=== PATIENT | female | born 1980 | race Caucasian/White ===

== ENCOUNTER → 2016-07-05 | Day surgery (SDC) | payer OTHER ==
[~2016-07-05] MED LIST: BACITRACIN OINT 1 EACH PACKET TOPICAL ONE; LIDOCAINE 1% INJ 10MG/ML (20 ML MDV) ONE; SODIUM BICARB 4% 5 ML VIAL (0.48 MEQ/ML) ONE
--- NOTE | 2016-07-05 09:29 | MM ---
EXAMINATION TYPE: MG stereo VAD BX LT DATE OF EXAM: 07/05/2016 9:11 AM COMPARISON: Previous mammogram dated 06/22/2016. CLINICAL HISTORY: Abnormal mammogram and ultrasound. TECHNIQUE: Stereotactic guided core biopsy of left breast. FINDINGS: The procedure of stereotactic guided core biopsy was explained to the patient. Benefits, alternatives, and risks were discussed. An informed consent was then obtained. [facility] Shortness pathway was a lateral approach. I performed the localization, then surgeon, Dr. Ness performed the remainder of the procedure. A vacuum assisted biopsy gun was used to obtain multiple core samples. The patient tolerated the procedure well without any immediate complication. The patient was kept in the radiology department for short stay after the procedure and then discharged home in stable condition. Targeted calcifications are identified in specimen mammogram. Post biopsy mammogram shows the clip to appear in satisfactory position relative to the targeted area of concern on the preprocedure images. IMPRESSION: SUCCESSFUL, UNCOMPLICATED STEREOTACTIC GUIDED CORE BIOPSY OF AREA OF CONCERN IN THE LEFT BREAST, FULL PATHOLOGY RESULTS TO FOLLOW. Pathology Results: Benign BREAST, LEFT, ULTRASOUND GUIDED CORE BIOPSY: FRAGMENTS OF FIBROADENOMA. FIBROCYSTIC CHANGE (STROMAL FIBROSIS, CYST FORMATION, ADENOSIS, COLUMNAR CELL CHANGE AND DUCT HYPERPLASIA). Recommendation Follow up mammogram and ultrasound of the left breast in 6 months. MTDD
--- NOTE | 2016-07-05 17:30 | PCN ---
DATE OF PROCEDURE: Patient was taken to the stereotactic core room and the area of concern in the left breast was localized. The skin was prepped in a sterile fashion. 1% lidocaine was used to anesthetize the area of concern. Multiple core biopsies were obtained and the specimen appeared to have tissue consistent with the lesion. The specimen was not radiographed as there were not microcalcifications. The marking clip was then left behind. The patient tolerated the procedure in stable condition and specimen was sent for pathology.
== END ==
LOC: RADMAMWWP 07:08
PROVIDERS: ATTEND Surgery
DX: D24.2 Benign neoplasm of left breast (principal); N60.12 Diffuse cystic mastopathy of left breast; N60.22 Fibroadenosis of left breast; N60.92 Unspecified benign mammary dysplasia of left breast; R92.8 Other abnormal and inconclusive findings on diagnostic imaging of breast
CPT/HCPCS: 88305; 19081; A4648; J2001

== ENCOUNTER → 2018-11-20 | Outpatient (CLI) | payer OTHER ==
[2018-11-20 14:40] VITALS: BP 115/81; PULSE 83; RESP 16; TEMP 97.8; BMI 33.3
--- NOTE | 2018-11-20 16:05 | P.GSHP ---
History of Present Illness H&P Date: 11/20/18 Chief Complaint: Mass right breast In the end is a 38-year-old white female who states that she felt a mass in her right breast [place] [id number]. She was seen by her primary care doctor and underwent a mammogram and ultrasound. She was noted to have an area of nodularity at 1:00 in the left breast which previously been biopsied this was felt to be slightly decreased in size when compared to prior exams. She developed an interval suspicious nodule in the 12 o'clock position of the right breast. Radiographically she was noted to have a mass in the right breast which is 14 x 19 mm on ultrasound. She does not feel any other masses or lesions in her breasts. She denies any history of trauma or infection in the breast. She was recently discharged from the hospital after a suicidal attempt. She is bipolar. She states that the lesion in her right breast is painful to touch. Family history: Maternal cousin: Colon cancer Father: Lung cancer Maternal uncle: Brain cancer Hormonal history: Menarche: 11 3 miscarriages Periods: Regular Procedure post colon 20 years Hormones: Negative Past surgical history: 1. Bilateral ankle surgery 2. Tubal ligation 3. Tonsils and adenoids 4. Mucosal lesion removed from her mouth Past medical history: 1. Bipolar 2. Depression and anxiety 3. Mood disorder 4. Insomnia Social history: Smoking: One pack per day for 20 years Alcohol: Occasional Drugs: Marijuana - Constitutional Constitutional: Denies chills, Denies fever - EENT Eyes: denies blurred vision, denies pain Ears: deny: decreased hearing, tinnitus Ears, nose, mouth and throat: Denies headache, Denies sore throat - Breasts Breasts: bilateral: as per HPI - Cardiovascular Cardiovascular: Denies chest pain, Denies shortness of breath - Respiratory Respiratory: Denies cough, Denies 7 - Gastrointestinal Gastrointestinal: Denies abdominal pain, Denies diarrhea, Denies nausea, Denies vomiting - Genitourinary (Female) Genitourinary: Denies dysuria, Denies hematuria - Menstruation Menstruation: Reports period normal - Musculoskeletal Comment: arthritis - Integumentary Integumentary: Denies pruritus, Denies rash - Neurological Comment: Carpal tunnel, weakness and hands at times - Psychiatric Psychiatric: Reports as per HPI - Hematologic/Lymphatic Comment: none - Allergic/Immunologic Allergic/Immunologic: Reports seasonal allergies Past Medical History Past Medical History: Skin Disorder History of Any Multi-Drug Resistant Organisms: None Reported Smoking Status: Current every day smoker Past Drug Use History: Marijuana Medications and Allergies Home Medications Medication Instructions Recorded Confirmed Type DULoxetine HCL [Cymbalta] 30 mg PO DAILY 11/20/18 11/20/18 History LORazepam [Ativan] 1 mg PO TID 11/20/18 11/20/18 History risperiDONE 2 mg PO HS 11/20/18 11/20/18 History traZODone HCL 100 mg PO HS 11/20/18 11/20/18 History Allergies Allergy/AdvReac Type Severity Reaction Status Date / Time No Known Allergies Allergy Unverified 11/20/18 14:40 Surgical - Exam Vital Signs Temp Pulse Resp BP Pulse Ox 97.8 F 83 16 115/81 95 11/20/18 14:36 11/20/18 14:36 11/20/18 14:36 11/20/18 14:36 11/20/18 14:36 BMI 33.3 - General well developed, well nourished, no distress - Eyes normal ocular movement - ENT no hearing loss, no congestion - Neck no masses, trachea midline - Respiratory normal respiratory effort, clear to auscultation - Cardiovascular Rhythm: regular Heart Sounds: normal: S1, S2 - Abdomen Abdomen: soft, non tender, no guarding, no rigid, no rebound - Integumentary Normal turgor - Neurologic no disoriented, no combative - Musculoskeletal normal gait, normal posture - Psychiatric oriented to time, oriented to person, oriented to place, speech is normal, memory intact Breast examination: Right breast: Multi-positional exam increased nodularity in the 12 o'clock position, 5 mL changes Right axilla: No adenopathy of concern Left breast: No dominant masses or nodules of concern on multi-positional exam, fibrocystic changes Left axilla: No adenopathy of concern Results Mammogram and ultrasound report reviewed Assessment and Plan Assessment: Impression: 1. Radiographic abnormality right breast 2. Mass right breast 3. Family history cancer 4. Psychiatric disorders including bipolar, depression/anxiety, mood disorder, insomnia 5. Carpal tunnel 6. Nicotine dependence 7. Marijuana daily Plan: 1. Ultrasound-guided core biopsy right breast 2. Follow-up after ultrasound-guided core biopsy 3. Consider excision of palpable mass depending on results of ultrasound core biopsy Cc: Bonnie Whitten
== END ==
LOC: WWCWWP 14:01
PROVIDERS: ATTEND Surgery
DX: Z53.9 Procedure and treatment not carried out, unspecified reason (principal)

== ENCOUNTER → 2018-11-25 | Day surgery (SDC) | payer OTHER ==
[2018-11-25 11:46] VITALS: RESP 16; BMI 33.3
[2018-11-25 13:01] VITALS: BP 111/75; PULSE 77; TEMP 98.1
--- NOTE | 2018-11-25 16:09 | USB ---
EXAMINATION TYPE: US biopsy breast VAD RT, MG diagnostic mammo RT wo CAD DATE OF EXAM: 11/25/2018 CLINICAL HISTORY: R92.8 ABN MAMMO. TECHNIQUE: Ultrasound guided core biopsy right breast. COMPARISON: Ultrasound dated 10/23/2018 FINDINGS: The procedure of ultrasound guided core biopsy was explained to the patient. Benefits, alt ernatives, and risks were discussed. An informed consent was then obtained. The patient was placed in supine positioning for imaging and for the procedure. The overlying skin w as prepped and draped in usual sterile fashion. Lidocaine buffered with bicarbonate was used as anes thetic into the skin and subcutaneous tissue up to area of concern in the right breast at the 12:00 p osition. A makayla was made with surgical scalpel. Under ultrasound guidance, a 12-gauge vacuum assisted biopsy gun device was used to obtain 2 core nadia ples. Following this, a biopsy clip was left in lesion. Post procedure 2 view digital mammogram dem onstrates the clip in the appropriate position at the 12:00 position. The patient tolerated the procedure well without any immediate complication. The patient was kept in the radiology department for short stay after the procedure and then discharged home in stable condi tion. IMPRESSION: Successful, uncomplicated ultrasound guided core biopsy of area of concern in the right b reast, full pathology results to follow.
== END | disposition home or self-care (01) ==
LOC: RADUSWWP 11:31
PROVIDERS: ATTEND Surgery
DX: C50.911 Malignant neoplasm of unspecified site of right female breast (principal)
CPT/HCPCS: 77065; 19083; A4648; J2001; 88305; 88341; 88342

== ENCOUNTER → 2018-12-05 | Outpatient (CLI) | payer OTHER ==
--- NOTE | 2018-12-05 13:56 | P.PN ---
Subjective Progress Note Date: 12/05/18 In the end is a 38-year-old white female who states that she felt a mass in her right breast [place] [id number]. She was seen by her primary care doctor and underwent a mammogram and ultrasound. She was noted to have an area of nodularity at 1:00 in the left breast which previously been biopsied this was felt to be slightly decreased in size when compared to prior exams. She developed an interval suspicious nodule in the 12 o'clock position of the right breast. Radiographically she was noted to have a mass in the right breast which is 14 x 19 mm on ultrasound. She does not feel any other masses or lesions in her breasts. She denies any history of trauma or infection in the breast. She was recently discharged from the hospital after a suicidal attempt. She is bipolar. She states that the lesion in her right breast is painful to touch. 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 Family history: Maternal cousin: Colon cancer Father: Lung cancer Maternal uncle: Brain cancer Hormonal history: Menarche: 11 3 miscarriages Periods: Regular Procedure post colon 20 years Hormones: Negative Past surgical history: 1. Bilateral ankle surgery 2. Tubal ligation 3. Tonsils and adenoids 4. Mucosal lesion removed from her mouth Past medical history: 1. Bipolar 2. Depression and anxiety 3. Mood disorder 4. Insomnia Social history: Smoking: One pack per day for 20 years Alcohol: Occasional Drugs: Marijuana - Constitutional Constitutional: Denies chills, Denies fever - EENT Eyes: denies blurred vision, denies pain Ears: deny: decreased hearing, tinnitus Ears, nose, mouth and throat: Denies headache, Denies sore throat - Breasts Breasts: bilateral: as per HPI - Cardiovascular Cardiovascular: Denies chest pain, Denies shortness of breath - Respiratory Respiratory: Denies cough, Denies 7 - Gastrointestinal Gastrointestinal: Denies abdominal pain, Denies diarrhea, Denies nausea, Denies vomiting - Genitourinary (Female) Genitourinary: Denies dysuria, Denies hematuria - Menstruation Menstruation: Reports period normal - Musculoskeletal Comment: arthritis - Integumentary Integumentary: Denies pruritus, Denies rash - Neurological Comment: Carpal tunnel, weakness and hands at times - Psychiatric Psychiatric: Reports as per HPI - Hematologic/Lymphatic Comment: none - Allergic/Immunologic Allergic/Immunologic: Reports seasonal allergies Past Medical History Past Medical History: Skin Disorder History of Any Multi-Drug Resistant Organisms: None Reported Smoking Status: Current every day smoker Past Drug Use History: Marijuana Objective - Vital Signs Vital signs: Vital Signs Temp 98.3 F 12/05/18 13:09 Pulse 72 12/05/18 13:09 Resp 18 12/05/18 13:09 BP 116/75 12/05/18 13:09 Pulse Ox 98 12/05/18 13:09 Intake & Output 12/04/18 12/05/18 12/05/18 18:59 06:59 18:59 Weight 90.718 kg - Exam BMI 33.3 - Constitutional General appearance: Present: average body habitus - EENT Eyes: Present: EOMI ENT: Present: hearing grossly normal - Neck Neck: Present: normal ROM - Respiratory Respiratory: bilateral: CTA - Cardiovascular Rhythm: regular Heart sounds: normal: S1, S2 - Integumentary Integumentary: Present: normal turgor - Musculoskeletal Musculoskeletal: Present: gait normal - Psychiatric Psychiatric: Present: A&O x's 3, appropriate affect, intact judgment & insight - Additional findings Additional findings: Breasts: Well-healed scar from prior biopsy no evidence of any infection, no evidence of any hematoma Assessment and Plan Assessment: Impression: 1. Biopsy-proven stage IB triple negative right breast cancer 2. Bipolar 3. Depression/anxiety 4. Mood disorder 5. Insomnia 6. Nicotine dependence The biopsy was also been discussed with the patient, her daughter, and her boyfriend. I have discussed the case with medical oncology. They have agreed to see her early next week to determine if she should have catherine-adjuvant chemotherapy. She will be presented at our tumor board. Plan: 1. Patient with medical oncology 2. Radiation oncology 3. Consider genetic testing 4. Surgical intervention following recommendation for medical and radiation oncology 5. Presentation at tumor board CC: Dr. Perez
== END ==
DX: Z53.9 Procedure and treatment not carried out, unspecified reason (principal)

== ENCOUNTER → 2018-12-10 | Outpatient (CLI) | payer OTHER | END | disposition home or self-care (01) | LOC: RADMRIMAIN 12:27 | PROVIDERS: ATTEND Internal Medicine Hematology & Oncology | DX: Z53.9 Procedure and treatment not carried out, unspecified reason (principal) ==

== ENCOUNTER → 2018-12-10 | Outpatient (CLI) | payer OTHER ==
--- NOTE | 2018-12-12 11:03 | ECHOF ---
Referral Reason:PRE CHEMO EXPOSURE MEASUREMENTS -------- HEIGHT: 165.1 cm WEIGHT: 8.6 kg BP: RVIDd: 2.1 cm (< 3.3) IVSd: 0.9 cm (0.6 - 1.1) LVIDd: 4.5 cm (3.9 - 5.3) LVPWd: 0.8 cm (0.6 - 1.1) IVSs: 1.2 cm LVIDs: 2.9 cm LVPWs: 1.3 cm LA Diam: 3.4 cm (2.7 - 3.8) Ao Diam: 2.6 cm (2.0 - 3.7) AV Cusp: 2.0 cm (1.5 - 2.6) LA Diam: 3.1 cm (2.7 - 3.8) MV EXCURSION: 16.594 mm (> 18.000) MV EF SLOPE: 103 mm/s (70 - 150) EPSS: 0.1 cm MV E Denilson: 0.75 m/s MV DecT: 180 ms MV A Denilson: 0.67 m/s MV E/A Ratio: 1.11 RAP: 5.00 mmHg RVSP: 33.39 mmHg FINDINGS -------- Sinus rhythm. This was a technically good study. The left ventricular size is normal. Overall left ventricular systolic function is normal with, an EF between 55 - 60 %. The right ventricle is normal in size. The left atrial size is normal. The aortic valve is trileaflet, and appears structurally normal. No aortic stenosis or regurgitation. Mild mitral annular calcification present. Mild mitral regurgitation is present. Mild tricuspid regurgitation present. There is no evidence of pulmonary hypertension. The right v entricular systolic pressure, as measured by Doppler, is 33.39mmHg. There is no pulmonic regurgitation present. The aortic root size is normal. There is no pericardial effusion. CONCLUSIONS -------- 1. The left ventricular size is normal. 2. The right ventricle is normal in size. 3. The left atrial size is normal. 4. The aortic valve is trileaflet, and appears structurally normal. No aortic stenosis or regurgitati on. 5. Mild mitral annular calcification present. 6. Mild mitral regurgitation is present. 7. Mild tricuspid regurgitation present. 8. There is no evidence of pulmonary hypertension. 9. The right ventricular systolic pressure, as measured by Doppler, is 33.39mmHg. 10. There is no pulmonic regurgitation present. 11. The aortic root size is normal. 12. There is no pericardial effusion. AMBULATORY CARE: Vesta Holliday RDCS
--- NOTE | 2018-12-12 15:22 | BMR ---
EXAMINATION TYPE: MR breast BILAT wo/w con DATE OF EXAM: 12/10/2018 COMPARISON: Outside mammogram dated 10/23/2018 and outside the right breast ultrasound also dated 10/23. Breast biopsy and mammogram dated 11/25/2018 on the right. HISTORY: Invasive poorly differentiated ductal carcinoma (grade 3) at the 12:00 position in the right breast at posterior depth, biopsy-proven right breast carcinoma. TECHNIQUE: A series of fat and water weighted images in the long and short axis views of both breasts are obtained in conjunction with dynamic contrast MRI with subtraction technique. The patient was i njected with 8.5 mL intravenous Gadavist gadolinium contrast. Three-dimensional and additional post processing imaging is created on independent workstation and reviewed during official interpretation of this study. FINDINGS: The breasts are composed of heterogenous fibroglandular tissue with symmetric moderate back ground parenchymal enhancement, limiting sensitivity of examination. There is susceptibility artifact within the biopsy-proven right breast carcinoma at the 12:00 positio n at posterior depth. This mass measures up to 2.0 x 2.0 cm in greatest dimension. This has washout k inetics. Bilateral ductal prominence, left greater than right is seen. T2 hyperintense enhancing lesions, one demarcated by a biopsy marker in the left upper outer quadrant at mid and posterior depth are seen me asuring 1.6 and 1.0 cm most compatible with fibroadenomas. The posterior mass is a biopsy-proven fibr oadenoma measuring larger on the prior exam of 2017 (2.0 cm in greatest dimension) and contains inter nal septations on MRI. Few internal septations are suggested in the more anterior mid depth mass. Ano ther T2 hyperintense nonenhancing lesion is seen near the 12:00 position at anterior depth measuring 8 mm representing a cyst. Retroareolar possible additional fibroadenoma at the 6:00 position is also seen with internal septations and persistent enhancement. This is markedly T2 hyperintense. No suspicious intramammary, internal mammary, nor axillary adenopathy. Nonenlarged 3 mm internal mamm tonja nodes are seen on the left on postcontrast series 701 image 196 on the left. Nonenlarged internal mammary lymph node is also seen medially within the left breast. IMPRESSION: BI-RADS [id number] malignancy. Known right breast cancer. 1. Solitary biopsy-proven right breast carcinoma measuring 2.2 x 2.2 cm at the 12:00 position. No add itional suspicious masses are seen within either breast. No suspicious adenopathy. 2. There are 3 probable left breast fibroadenomas, the largest of which represents a biopsy-proven fi broadenoma. Additional findings on the left include a nonenhancing cyst, nonenlarged internal mammary lymph node, retroareolar ductal prominence and a nonenlarged intramammary lymph node.
== END | disposition home or self-care (01) ==
LOC: RADECHMAIN 12:32
PROVIDERS: ATTEND Internal Medicine Hematology & Oncology
DX: Z01.818 Encounter for other preprocedural examination (principal); C50.911 Malignant neoplasm of unspecified site of right female breast
CPT/HCPCS: 93306; C8937; C8908; A9585; 77049

== ENCOUNTER → 2018-12-17 | Outpatient (CLI) | payer OTHER ==
--- NOTE | 2018-12-17 14:10 | NM ---
EXAMINATION TYPE: NM bone scan whole body DATE OF EXAM: 12/17/2018 COMPARISON: MRI breast dated 12/10/2018 HISTORY: Breast cancer Delayed whole-body scanning was performed following the injection of 23.8 mCi Tc 99m MDP. Images acq uired 3.25 hours post injection. FINDINGS: Mild uptake is seen at the sacroiliac joints, sternoclavicular joints, acromioclavicular joints, and glenohumeral joints as well as within the knees and ankles, likely on the basis of mild degenerative change. Very subtle uptake is seen within [place] superior sternal body fracture which correlation with CT is recommended to exclude metastasis. IMPRESSION: 1. Very subtle uptake in the sternum. This could represent a metastatic lesion if there is a CT corre late and therefore CT thorax is recommended for further evaluation. Sternal radiographs would be subo ptimal to evaluate the small area. 2. Minimal degenerative changes of the axial skeleton, symmetric.
--- NOTE | 2018-12-17 17:01 | CT ---
EXAMINATION TYPE: CT ChestAbdPelvis w con DATE OF EXAM: 12/17/2018 INDICATION: Breast CA COMPARISON: None CT DLP: 1023.5 mGycm CONTRAST: Performed with Oral Contrast and with IV Contrast, patient injected with 100 mL of Isovue 300. TECHNIQUE: Axial images at 5 mm thick sections. Reconstructed images in the coronal plane. Delayed images through the kidneys. FINDINGS: CT CHEST: Portion of the thyroid visualized is normal. There is a 0.5 cm nodule within the right middle lobe. Series 4 image 23. There is a 0.4 cm nodule ad jacent to the major fissure within the superior segment right lower lobe. Series 4 image 20. A nodule s within the right mid lung adjacent to the major fissure likely within the superior segment right lo wer lobe, series 4 image 23. Minimal left pleural effusion is present. No enlarged mediastinal or hilar adenopathy is evident. No suspicious axillary adenopathy is evident. The ascending aorta diameter at the level of the main pulmonary artery is 2.6 cm. The main pulmonary artery diameter at the bifurcation is 2.[address] ABDOMEN: Liver: Normal Spleen: Normal Pancreas: Normal Adrenal glands: The adrenal glands are normal. Gallbladder: Normal Kidneys: No masses are evident. No hydronephrosis is present. No cysts are present. Delayed images were obtained through the kidneys, which remain unremarkable. Aorta: Normal Inferior vena cava: Normal. CT PELVIS: Loops of bowel within the abdomen and pelvis are normal. There are loops of bowel which are incom pletely distended or lack oral contrast limiting their evaluation. Appendix: Normal as visualized. Urinary bladder: Normal. Genitourinary structures: There is a 2.6 cm left ovarian cyst. Uterus is unremarkable. There is a 1.6 cm right ovarian cyst. No free fluid is within the pelvis. Osseous structures: No suspicious lytic or sclerotic lesions. IMPRESSIONS: 1. Bilateral ovarian cyst. This could be confirmed with ultrasound. 2. At least 3 nodules within the right lung of indeterminate etiology. Consider PET CT for additional evaluation.
== END | disposition home or self-care (01) ==
LOC: RADCTMAIN 08:32
PROVIDERS: ATTEND Internal Medicine Hematology & Oncology
DX: N83.202 Unspecified ovarian cyst, left side (principal); N83.201 Unspecified ovarian cyst, right side; R91.8 Other nonspecific abnormal finding of lung field; C50.111 Malignant neoplasm of central portion of right female breast; M89.8X0 Other specified disorders of bone, multiple sites
CPT/HCPCS: 71260; 74177; 78306; A9503; Q9967

== ENCOUNTER → 2018-12-26 | Outpatient (CLI) | payer OTHER ==
--- NOTE | 2018-12-29 14:35 | PE ---
Nuclear medicine PET/CT HISTORY: Pulmonary nodule, initial, and history of breast carcinoma Patient received 11.5 mCi F-18 FDG intravenously in delayed scanning was performed from the skull bas e to the mid thighs. Localization and attenuation correction CT scan was performed. Correlation CT 12/17/2018 Neck and chest: The patient's subcentimeter right pulmonary nodule does not show associated hypermeta bolic uptake and is likely benign adjacent to the fissure. Patient's right breast carcinoma does show associated hypermetabolic uptake, SUV 8.3. There is no mediastinal, axillary, or hilar adenopathy. N o pleural or pericardial effusion. No supra clavicular or cervical adenopathy. ABDOMEN: There is no evident liver mass. No retroperitoneal adenopathy or suspicious hypermetabolic u ptake. There is no ascites. Nonobstructive calculus present at the lower pole of left kidney. Osseous structures are within normal limits. IMPRESSION: Metastatic disease is not evident.
== END ==
LOC: RADPETMAIN 14:58
PROVIDERS: ATTEND Internal Medicine Hematology & Oncology
DX: R91.1 Solitary pulmonary nodule (principal)
CPT/HCPCS: 78815; A9552

== ENCOUNTER 2019-01-01 12:20 | Day surgery (SDC) | payer OTHER ==
[~2019-01-01 12:20] MED LIST changes: -BACITRACIN OINT 1 EACH PACKET TOPICAL ONE; +HEPARIN SODIUM,PORCINE 5,000 UNIT/ML 1 ML VIAL SQ ONE; -LIDOCAINE 1% INJ 10MG/ML (20 ML MDV) ONE; +Pre Op ABX Message 1 EACH MISC MISCELLANE ONE; -SODIUM BICARB 4% 5 ML VIAL (0.48 MEQ/ML) ONE
[2019-01-01] MEDS ORDERED: LACTATED RINGERS 1,000 ML IV ONE ×2 (12:45→16:52)
[2019-01-01] MEDS ORDERED: LIDOCAINE 1% 20 ML VIAL (10MG/ML) FOR IV START INTRADERMA ONE (12:46)
[2019-01-01] MEDS ORDERED: LIDOCAINE 1% 20 ML VIAL (10MG/ML) FOR IV START INTRADERMA PRN (12:53)
[2019-01-01] MEDS ORDERED: HYDROmorphone 0.5 MG/0.5 ML SYRINGE IVP PRN (12:53)
[2019-01-01] MEDS ORDERED: ONDANSETRON 4 MG/2 ML VIAL IVP PRN (12:53)
[2019-01-01] MEDS ORDERED: fentaNYL (PF) 50 MCG/ML 2 ML AMP IV PRN (12:53)
[2019-01-01] MEDS ORDERED: METOCLOPRAMIDE 5 MG/ML 2 ML VIAL IVP PRN (12:53)
[2019-01-01] MEDS ORDERED: LACTATED RINGERS 1,000 ML IV SCH (13:00)
[2019-01-01] MEDS ORDERED: ONDANSETRON 4 MG/2 ML VIAL IVP ONE (13:01)
[2019-01-01] MEDS ORDERED: DEXAMETHASONE SOD PHOSPHATE 10 MG/ML 1 ML VIAL IV ONE (13:02)
--- NOTE | 2019-01-01 16:07 | P.GSHP ---
History of Present Illness H&P Date: 01/01/19 Chief Complaint: Right breast cancer 38-year-old female with recent diagnosis of right breast cancer. Patient to begin neoadjuvant chemotherapy. Here today for Port-A-Cath placement. She has not had a port previously. No chest pain, no shortness of breath. Past Medical History Past Medical History: Skin Disorder Additional Past Medical History / Comment(s): depression, recent breast CA diagnosis History of Any Multi-Drug Resistant Organisms: None Reported Past Surgical History: Adenoidectomy, Orthopedic Surgery, Tonsillectomy, Tubal Ligation Additional Past Surgical History / Comment(s): torn meniscus bilateral ankles Past Anesthesia/Blood Transfusion Reactions: No Reported Reaction Past Psychological History: Depression Smoking Status: Current some day smoker Past Alcohol Use History: Occasional Past Drug Use History: Marijuana Medications and Allergies Home Medications Medication Instructions Recorded Confirmed Type DULoxetine HCL [Cymbalta] 90 mg PO DAILY 11/20/18 01/01/19 History LORazepam [Ativan] 1 mg PO QID 11/20/18 01/01/19 History risperiDONE 1 mg PO HS 11/20/18 01/01/19 History traZODone HCL 100 mg PO HS 11/20/18 01/01/19 History Omeprazole Magnesium [PriLOSEC OTC] 20 mg PO DAILY 11/24/18 01/01/19 History Allergies Allergy/AdvReac Type Severity Reaction Status Date / Time No Known Allergies Allergy Verified 01/01/19 12:41 Surgical - Exam Vital Signs Temp Pulse Resp BP Pulse Ox 99.0 F 68 16 109/69 96 01/01/19 12:35 01/01/19 12:35 01/01/19 12:35 01/01/19 12:35 01/01/19 12:35 Physical exam: General: Well-developed, well-nourished HEENT: Normocephalic, sclerae nonicteric Abdomen: Nontender, nondistended Extremities: No edema Neuro: Alert and oriented Assessment and Plan (1) Breast cancer, right Narrative/Plan: Will proceed with Port-A-Cath placement at this time. Risks of bleeding, infection, DVT, pneumothorax, catheter malfunction, anesthesia related complications were discussed. The patient understands and wishes to proceed. Current Visit: Yes Status: Acute Code(s): C50.911 - MALIGNANT NEOPLASM OF UNSP SITE OF RIGHT FEMALE BREAST SNOMED Code(s): 466259986
[2019-01-01] MEDS ORDERED: LIDOCAINE 1% INJ 10MG/ML (20 ML MDV) ONE (16:27)
[2019-01-01] MEDS ORDERED: fentaNYL (PF) 50 MCG/ML 2 ML AMP ONE (16:27)
[2019-01-01] MEDS ORDERED: MIDAZOLAM 2 MG/2 ML VIAL ONE (16:27)
[2019-01-01] MEDS ORDERED: PROPOFOL 10 MG/ML 20 ML VIAL IV ONE (16:27)
[2019-01-01] MEDS ORDERED: HYDROmorphone (PF) 1 MG/ML ONE (16:27)
[2019-01-01] MEDS ORDERED: KETOROLAC 30 MG/ML 1 ML VIAL ONE (16:27)
[2019-01-01] MEDS ORDERED: SODIUM CHLORIDE 0.9% 50 ML IV ONE (16:52)
[2019-01-01] MEDS ORDERED: LIDOCAINE (PF) 10 MG/ML 2 ML VIAL SQ ONE (17:01)
[2019-01-01] MEDS ORDERED: HEPARIN SODIUM,PORCINE 100 UNIT/ML 5 ML VIAL IV ONE ×3 (17:03)
[2019-01-01] MEDS ORDERED: NALOXONE 0.4 MG/ML 1 ML VIAL IV PRN (17:27)
[2019-01-01] MEDS ORDERED: HYDROcodone/APAP 5-325MG 1 EACH TAB PO PRN (17:27)
--- NOTE | 2019-01-01 17:28 | P.OP ---
Date of Procedure: 01/01/19 Procedure(s) Performed: PREOPERATIVE DIAGNOSIS: Right breast cancer POSTOPERATIVE DIAGNOSIS: Same PROCEDURE: Port-A-Cath placement SURGEON: Neville EBL: Minimal ANESTHESIA: Sedation COMPLICATIONS: None OPERATIVE PROCEDURE: Patient was brought and placed on the operative table in the supine position. The patient was sedated per anesthesia that time. The chest and neck were prepped and draped in usual sterile fashion. The ultrasound probe was used to identify the location of the right internal jugular vein. The skin was localized with lidocaine. The Seldinger needle was advanced into the IJ under ultrasound guidance. The wire was advanced through the needle under fluoroscopic guidance into the superior vena cava. A port pocket was created in the right infraclavicular location. The catheter was tunneled from the wire entrance site to the port pocket. The port was then connected to the catheter. The dilator introducer was threaded over the guidewire. The guidewire and dilator were then removed. The catheter was advanced through the introducer and introducer was then removed. The tip was seen to be in the right atrial junction. Port was flushed with both saline and a Hep-Lock solution. There was good flow both in and out of the port. The port was sutured in underlying tissues using 3-0 silk sutures. The subcutaneous tissues were reapproximated using 3-0 Vicryl sutures and the skin at both locations using 4-0 Monocryl sutures. Skin glue and sterile dressings then applied. DISPOSITION: Stable to recovery room
[2019-01-01 17:39] VITALS: TEMP 97.5
--- NOTE | 2019-01-01 17:56 | XR ---
EXAMINATION TYPE: XR chest 1V confirm line [facility] DATE OF EXAM: 01/01/2019 COMPARISON: NONE HISTORY: Check line placement TECHNIQUE: Single frontal view of the chest is obtained. FINDINGS: Heart and mediastinum are normal. There is some mild linear infiltrate and atelectasis lef t lung base. There is right central venous catheter with tip in the superior vena cava. No pneumothor ax. There are chest leads. IMPRESSION: Mild atelectasis left lung base. Normal heart.
[2019-01-01 18:09] VITALS: RESP 18
[2019-01-01] MEDS ORDERED: HYDROcodone/APAP 5-325MG 1 EACH TAB PO ONE (18:27)
[2019-01-01 18:29] VITALS: PULSE 99
[2019-01-01 19:40] VITALS: BP 101/80
--- NOTE | 2019-01-02 07:37 | FL ---
Fluoroscopy INDICATION: Pain FINDINGS: Fluoroscopy time: 10 seconds. Images obtained: 1. IMPRESSIONS: 1. Documentation of fluoroscopy.
== END 2019-01-01 19:29 | disposition home or self-care (01) ==
LOC: OR 12:20
PROVIDERS: ATTEND Surgery
DX: C50.911 Malignant neoplasm of unspecified site of right female breast (principal); F32.9 Major depressive disorder, single episode, unspecified; Z98.51 Tubal ligation status; Z79.899 Other long term (current) drug therapy; F17.210 Nicotine dependence, cigarettes, uncomplicated
CPT/HCPCS: 81025; 77001; 36571; C1788; J2250; J2001 ×2; J1644; J1642; J1100; J2405; J3010; J1885; J1170; J2704

== ENCOUNTER → 2019-05-22 | Outpatient (CLI) | payer OTHER ==
[2019-05-22 09:05] VITALS: BP 131/86; PULSE 95; RESP 16; TEMP 97.8
--- NOTE | 2019-05-22 10:28 | P.PN ---
Subjective Progress Note Date: 05/22/19 Principal diagnosis: Stage IIIB right breast cancer T2 N0 M0 G3 ER/ME negative HER-2 negative Esmer is a 38-year-old white female who states that she felt a mass in her right breast on . She was seen by her primary care doctor and underwent a mammogram and ultrasound. She was noted to have an area of nodularity at 1:00 in the left breast which previously been biopsied this was felt to be slightly decreased in size when compared to prior exams. She developed an interval suspicious nodule in the 12 o'clock position of the right breast. Radiographically she was noted to have a mass in the right breast which is 14 x 19 mm on ultrasound. ( MRI 2.2 cm) She does not feel any other masses or lesions in her breasts. She denies any history of trauma or infection in the breast. She was recently discharged from the hospital after a suicidal attempt. She is bipolar. She states that the lesion in her right breast is painful to touch. Clinically the lesion was felt to be a T2 N0 M0 triple negative lesion. A CAT scan of the chest abdomen and pelvis and bone scan were performed in December 2018 as well as a PET scan. This did not show any metastatic disease. She has a nonspecific subcentimeter pulmonary nodule in the right right lung which are not metabolically active that will be monitored. The tumor was felt to be approximately 2.2 cm in greatest dimension. MRI of the breast was performed which showed a solitary biopsy-proven right breast cancer measuring approximately 2.2 cm at the 12 o'clock position. She was stable left breast fibroadenoma. It was recommended that she undergo dose dense Adriamycin plus Cytoxan followed by paclitaxel. She was started on this regimen on . She tolerated her treatment well with only grade 1 neuropathy. She has had good response to the treatment. The right breast masses become very vague as per m edical oncology. The patient had genetic testing done we are awaiting results. Esmer underwent neoadjuvant chemotherapy. She finished this May 11. The patient tolerated the chemotherapy well. She is now ready to discuss surgical intervention. The patient states the lump in her breast has decreased in size. 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 Family history: Maternal cousin: Colon cancer Father: Lung cancer Maternal uncle: Brain cancer patient: breast cancer Hormonal history: Menarche: 11 3 miscarriages Periods: Regular Procedure post colon 20 years Hormones: Negative Past surgical history: 1. Bilateral ankle surgery 2. Tubal ligation 3. Tonsils and adenoids 4. Mucosal lesion removed from her mouth Past medical history: 1. Bipolar 2. Depression and anxiety 3. Mood disorder 4. Insomnia Social history: Smoking: One pack per day for 20 years Alcohol: Occasional Drugs: Marijuana - Constitutional Constitutional: Denies chills, Denies fever - EENT Eyes: denies blurred vision, denies pain Ears: deny: decreased hearing, tinnitus Ears, nose, mouth and throat: Denies headache, Denies sore throat - Breasts Breasts: bilateral: as per HPI - Cardiovascular Cardiovascular: Denies chest pain, Denies shortness of breath - Respiratory Respiratory: cough, subpulmonary nodule right lung - Gastrointestinal Gastrointestinal: Denies abdominal pain, diarrhea, Denies nausea, Denies vomiting - Genitourinary (Female) Genitourinary: Denies dysuria, Denies hematuria - Menstruation Menstruation: Reports period stopped after first round of chemotherapy - Musculoskeletal Comment: arthritis - Integumentary Integumentary: Denies pruritus, Denies rash - Neurological Comment: Carpal tunnel, weakness and hands at times - Psychiatric Psychiatric: Reports as per HPI - Hematologic/Lymphatic Comment: none - Allergic/Immunologic Allergic/Immunologic: Reports seasonal allergies Social History: smoke: 1/PPD 15 years alcohol: no drugs: Marijuana once or twice a day/recreation and calming Past Medical History Past Medical History: Skin Disorder History of Any Multi-Drug Resistant Organisms: None Reported Smoking Status: Current every day smoker Past Drug Use History: Marijuana Objective - Vital Signs Vital signs: Vital Signs Temp 97.8 F 05/22/19 09:02 Pulse 95 05/22/19 09:02 Resp 16 05/22/19 09:02 BP 131/86 05/22/19 09:02 Pulse Ox 96 05/22/19 09:02 Intake & Output 05/21/19 05/22/19 05/22/19 18:59 06:59 18:59 Weight 73.936 kg - Exam BMI 27.1 - Constitutional General appearance: Present: average body habitus - EENT EENT Comment(s): Patient hair growing back in after chemotherapy Eyes: Present: EOMI ENT: Present: hearing grossly normal - Neck Details: no adenopathy Neck: Present: normal ROM Thyroid: bilateral: normal size - Respiratory Respiratory: bilateral: CTA - Cardiovascular Rhythm: regular Heart sounds: normal: S1, S2 - Gastrointestinal General gastrointestinal: Present: normal bowel sounds, soft - Integumentary Integumentary: Present: normal turgor - Musculoskeletal Musculoskeletal: Present: gait normal - Psychiatric Psychiatric: Present: A&O x's 3, appropriate affect, intact judgment & insight - Additional findings Additional findings: breast exam: BRA 38D right breasts: Multiple positional exam fibrocystic changes, especially attention at the 12 o'clock position does not reveal a discrete mass or nodule at this time Right axilla: No adenopathy of concern Left breast: Fibrocystic changes no dominant masses or nodules of concern Left axilla: No adenopathy of concern Assessment and Plan Assessment: Impression: 1. stage IIB right breast cancer, status post neoadjuvant chemotherapy with dose dense Adriamycin plus Cytoxan followed by paclitaxel, goof response 2. subcm right pulmonary nodule being followed 3. bipolar 4. diarrhea status post chemotherapy 5. Genetic testing results revealed the variant of unknown significance this was not taken into account therefore to recommend mastectomy as it is no known clinically actionable alteration detected Treatment options were discussed with the patient and her . These include mastectomy plus or minus reconstruction as well as lumpectomy using an onco-plastic approach most likely a doughnut mastopexy approach. They understand there may be some asymmetry to the breast and wished to proceed. They also understand that if the margins were positive that the further reexcision may be necessary. The patient has also been counseled regarding sentinel node biopsy possible axillary node dissection. Risk and benefits including bleeding and infection reaction to the anesthetic possible decreased sensation to the inner arm and/or injury to the thoraco-dorsal or long thoracic nerves. Results of genetic testing were also discussed in detail with the patient and her . Plan: 1. Right breast needle localization lumpectomy, with onco-plastic tissue transfer 2. Rudolph node biopsy possible axillary node dissection 3. present case at tumor board 4. Pulmonary nodule status to be discussed with Dr. Avila/medical oncology Cc: Dr. Avila encounter 50 minutes > 50% of time in planning and counselling Time with Patient: Greater than 30
== END | disposition home or self-care (01) ==
LOC: WWCWWP 08:31
PROVIDERS: ATTEND Surgery
DX: Z53.9 Procedure and treatment not carried out, unspecified reason (principal)

== ENCOUNTER 2019-06-17 10:30 | Day surgery (SDC) | payer OTHER ==
[2019-06-15 13:23] VITALS: BMI 28.8
[~2019-06-17 10:30] MED LIST changes: +DEXAMETHASONE SOD PHOSPHATE 10 MG/ML 1 ML VIAL IV ONE; +HYDROmorphone 0.5 MG/0.5 ML SYRINGE IVP PRN; +LIDOCAINE 1% 20 ML VIAL (10MG/ML) FOR IV START INTRADERMA PRN; +MIDAZOLAM 2 MG/2 ML VIAL IV PRN; +ONDANSETRON 4 MG/2 ML VIAL IVP ONE; +SCOPOLAMINE 1.5MG/72HR PATCH TRANSDERM ONE
[2019-06-17] MEDS ORDERED: ALPRAZolam 0.5 MG TAB PO ONE ×2 (11:10)
[2019-06-17] MEDS: LACTATED RINGERS 1,000 ML IV SCH ×2 (11:20→20:01)
[2019-06-17] MEDS ORDERED: LIDOCAINE 1% INJ 10MG/ML (20 ML MDV) SQ ONE ×2 (11:53→14:38)
--- NOTE | 2019-06-17 12:20 | NM ---
EXAMINATION TYPE: NM sentinel node injection DATE OF EXAM: 06/17/2019 COMPARISON: Right breast biopsy dated 11/25/2018 HISTORY: Biopsy-proven right breast carcinoma with request for sentinel node injection TECHNIQUE AND FINDINGS: The procedure of sentinel lymph node injection was explained to the patient. The benefits, alternatives, and risks were discussed. An informed consent was then obtained. Overlying skin is cleaned with sterile alcohol. Following this, 532 uCi Tc99m Tilmanocept was inject ed in the upper outer aspect of the nipple intradermally. The patient tolerated the procedure well without any immediate complication. The patient was kept in the radiology department for short stay after the procedure and then taken to surgery for surgical p rocedure what is presumed intraoperative gamma probe will be used for sentinel lymph node detection. IMPRESSION: Right breast radiotracer injection for sentinel node localization as above.
[2019-06-17] MEDS ORDERED: ESMOLOL 100 MG/10 ML VIAL ONE (14:18)
[2019-06-17] MEDS ORDERED: MIDAZOLAM 2 MG/2 ML VIAL ONE (14:18)
[2019-06-17] MEDS ORDERED: PROPOFOL 10 MG/ML 20 ML VIAL IV ONE (14:18)
[2019-06-17] MEDS ORDERED: KETAMINE 10 MG/ML 20 ML VIAL ONE (14:18)
[2019-06-17] MEDS ORDERED: HYDROmorphone (PF) 1 MG/ML ONE (14:18)
[2019-06-17] MEDS ORDERED: SUCCINYLCHOLINE CHLORIDE 100 MG/5 ML SYR IV ONE (14:18)
[2019-06-17] MEDS ORDERED: fentaNYL (PF) 50 MCG/ML 2 ML AMP ONE (14:18)
[2019-06-17] MEDS ORDERED: LIDOCAINE 1% INJ 10MG/ML (20 ML MDV) ONE (14:18)
[2019-06-17] MEDS ORDERED: SODIUM CHLORIDE 0.9% 100 ML with ceFAZolin 2,000 MG IV ONE ×2 (14:55)
[2019-06-17] MEDS ORDERED: LACTATED RINGERS 1,000 ML IV ONE ×2 (15:59)
--- NOTE | 2019-06-17 17:55 | P.OP ---
Date of Procedure: 06/17/19 Preoperative Diagnosis: left breast cancer Postoperative Diagnosis: same Procedure(s) Performed: [place] node biopsy, needle local and lumpectomy with tissue transfer Anesthesia: ML Surgeon: Susan Ness Estimated Blood Loss (ml): 50 IV fluids (ml): 800 Pathology: other (sentinal node, breast tissue) Condition: stable Disposition: same day Indications for Procedure: left breast cancer Operative Findings: dense breast tissue Description of Procedure: Esmer is a 38-year-old white female status post neoadjuvant chemotherapy for invasive ductal carcinoma of the right breast. After options were discussed with the patient she chose lumpectomy and sentinel node biopsy possible axillary node dissection. Risks and benefits of the procedure were discussed with the patient including bleeding, infection, reaction to the anesthetic. She understood that depending on results of pathology she may need to undergo reexcision or mastectomy. The patient was taken to the operating room following needle localization of area of concern in the right breast as well as injection of lymphokine. Following induction of anesthesia the right axilla and breast were prepped and draped in a sterile fashion. The axillary portion of the procedure was performed first. Using the neoprobe the area of greatest radioactivity in the axilla was identified. An incision was made and carried down to the axillary tissue. The area of highest radioactivity was grasped with an Allis clamp and excised. A node was identified and the 10 second count of the node was 2065. The background count at 10 seconds was 66. No other lymph nodes of concern were identified and it was felt that this was the auto service representative sentinel node. There were some several small vessels bleeding and these were oversewn using 3-0 Vicryl suture. The wound was irrigated. When we were assured that hemostasis was attained the deep tissues were closed with 3-0 Vicryl suture. The skin was closed with 4-0 Monocryl. Secondary to the oozing during the case a #10 GWEN drain was placed and secured with a nylon suture. The area of the right breast was then approached. It was felt that the lesion could be accessed via a crescent mastopexy. Markings were placed for this. The skin was de-epithelialized. The breast parenchyma was entered in the de- epithelialized tissue. Flaps were formed up to the area of the wire. The wire was grasped and brought into the wound. Careful dissection was performed circumferentially around the wire. The medial tip of the wire was in close proximity to the port for the Port-A-Cath and we were cautious dissecting this portion to avoid exposure of the port on the Port-A-Cath. Circumferential dissection was performed and the specimen was removed. Posteriorly dissection was carried to the pectoralis major muscle. Radiograph of the specimen did not reveal the clip of concern. Therefore additional borders were obtained medially inferiorly anteriorly and superiorly. Again additional radiograph did not reveal the clip of concern. Upon doing the dissection there was some hematoma around the localization wire which was suctioned and there was some thought that the clip may have been suctioned from the wound. It was determined to terminate the procedure as we had dissected widely around the area no palpable abnormality was noted and no evidence of residual tumor was identified. After assured that hemostasis was attained Surgicel in powder form was placed. The deep tissues were mobilized and brought together in an anterior to posterior fashion using 3- 0 Vicryl suture. Tissue mobilization was approximately 50 cm. The periareolar incision was closed using deep 3-0 Vicryl sutures followed by 4-0 Monocryl. A nylon suture was placed. The patient tolerated the procedure in stable condition. All instrument and sponge counts were correct at the end of the case. The plan will be to await pathology results. Most likely repeat radiograph of the breast at approximately 4-6 weeks will be performed to ascertain if the clip is still in the breast. The patient will be followed closely postoperatively.
--- NOTE | 2019-06-17 17:56 | P.DS ---
Providers Attending physician: Susan Ness Primary care physician: Andria Perez Plan - Discharge Summary Discharge Rx Participant: No New Discharge Prescriptions: No Action traZODone HCL 100 mg PO HS LORazepam [Ativan] 1 mg PO QID DULoxetine HCL [Cymbalta] 90 mg PO QAM Ibuprofen 200 mg PO DAILY PRN PRN Reason: Pain Omeprazole [PriLOSEC] 20 mg PO QAM Discharge Medication List DULoxetine HCL [Cymbalta] 90 mg PO QAM 11/20/18 [History] LORazepam [Ativan] 1 mg PO QID 11/20/18 [History] traZODone HCL 100 mg PO HS 11/20/18 [History] Ibuprofen 200 mg PO DAILY PRN 05/22/19 [History] Omeprazole [PriLOSEC] 20 mg PO QAM 06/15/19 [History] Follow up Appointment(s)/Referral(s): Susan Ness MD [STAFF PHYSICIAN] - 1 Week Activity/Diet/Wound Care/Special Instructions: Do not drive today Wear bra at all times teach patient drain care, drain and record twice a day and as needed Patient may shower after 48 hours Discharge Disposition: HOME SELF-CARE
[2019-06-17] MEDS ORDERED: NALOXONE 0.4 MG/ML 1 ML VIAL IV PRN (18:20)
[2019-06-17] MEDS ORDERED: ONDANSETRON 4 MG/2 ML VIAL IVP PRN (18:20)
--- NOTE | 2019-06-17 18:26 | P.NAPBC ---
NAPBC Queries - NAPBC Queries Was patient's case review presented at [facility] tumor board? If no, comment.: Yes Was patient's pathology reviewed at [facility]? If no, comment.: Yes Was breast conservation surgery offered? If no, comment.: Yes Was sentinel node biopsy offered? If no, comment.: Yes Was diagnosis confirmed by percutaneous core biopsy? If no, comment.: Yes Is patient mastectomy patient?: No Clinical Stage: [id number] Stage IIIB
[2019-06-17] MEDS ORDERED: KETOROLAC 30 MG/ML 1 ML VIAL IVP ONE (18:32)
[2019-06-17] MEDS ORDERED: traZODone HCL 100 MG TAB PO SCH (21:00)
[2019-06-17] MEDS: HYDROmorphone 1 MG/ML 1 ML SYRINGE IVP PRN (21:22)
[2019-06-17] MEDS: DEXTROSE 5%-0.45% NACL 1,000 ML IV SCH (21:24)
[2019-06-17] MEDS: HEPARIN SODIUM,PORCINE 5,000 UNIT/ML 1 ML VIAL SQ SCH (23:46)
[2019-06-18] MEDS: HYDROmorphone 1 MG/ML 1 ML SYRINGE IVP PRN (02:08)
[2019-06-18] MEDS: DEXTROSE 5%-0.45% NACL 1,000 ML IV SCH (06:26)
[2019-06-18] MEDS: HYDROcodone/APAP 5-325MG 1 EACH TAB PO PRN ×2 (06:27→11:25)
[2019-06-18] MEDS ORDERED: PANTOPRAZOLE 40 MG TABLET PO SCH (07:30)
--- NOTE | 2019-06-18 08:58 | P.PN ---
Subjective Progress Note Date: 06/18/19 Principal diagnosis: Postop day #1 right breast lumpectomy and sentinel node biopsy Esmer is a 38-year-old white female status post right breast lumpectomy and sentinel node biopsy. A GWEN drain was left in place and the apparatus proximally 10 mL of serosanguineous fluid. She has no complaints at this time. The patient underwent a right breast lumpectomy following neoadjuvant chemotherapy for approximately 2.2 cm right breast cancer. This was a triple negative cancer. The patient intraoperatively had radiographic for specimen and the clip was not seen. Additional tissue was removed and the clip was still not seen. I discussed this with the patient and her family. I stated that most likely we will repeat a mammogram in 4 weeks time and try to ascertain if the clip was still present in the breast. We will also wait to see what pathology reveals. I have told him that it may require further surgical resection depending on results of pathology and repeat radiograph. The patient understands and will be seen in follow-up next week. It is possible that the clip was suctioned out of the area were working and draining the time of the lumpectomy. The patient did have a hematoma following needle localization. It is also possible that she had response to the neoadjuvant chemotherapy and there is no residual tumor left. Objective - Vital Signs Vital signs: Vital Signs Temp 98.1 F 06/17/19 23:15 Pulse 84 06/17/19 23:15 Resp 16 06/17/19 23:15 BP 99/67 06/17/19 23:15 Pulse Ox 96 06/17/19 23:15 Intake & Output 06/17/19 06/18/19 06/18/19 18:59 06:59 18:59 Intake Total 900 2180 Output Total 50 610 Balance 850 1570 Weight 73.8 kg 73.8 kg Intake: IV 900 200 Oral 1980 Output: Drainage 10 Right Breast 10 Urine 600 Estimated Blood Loss 50 Other: # Voids 240 - Constitutional General appearance: Present: average body habitus - EENT Eyes: Present: EOMI ENT: Present: hearing grossly normal - Neck Neck: Present: normal ROM - Respiratory Respiratory: bilateral: CTA - Cardiovascular Rhythm: regular Heart sounds: normal: S1, S2 - Integumentary Integumentary Comment(s): Incisions clean and dry No evidence of infection or hematoma in either the axillary or breast incision Integumentary: Present: normal turgor - Musculoskeletal Musculoskeletal: Present: gait normal - Psychiatric Psychiatric: Present: A&O x's 3, appropriate affect, intact judgment & insight Assessment and Plan Assessment: Impression: 1. Patient postop day #1 right breast lumpectomy and sentinel node biopsy 2. GWEN drainage serous in nature 3. Patient doing well postop 4. Question as to whether the area of concern in the right breast was resected/the clip was not identified in either radiographs specimen, I discussed this with the patient and her family Plan: 1. Most likely repeat radiograph of the breast and 4 weeks' time to determine if clip was still in place 2. Will discuss case with radiology 3. Await pathology results 4. Most likely be present at tumor board 5. Patient for discharge home today
[2019-06-18] MEDS ORDERED: DULoxetine HCL 30 MG CAPSULE.DR PO SCH (09:00)
--- NOTE | 2019-06-18 09:00 | P.DS ---
Providers Attending physician: Susan Ness Consults: 06/17/19 18:23 Consult Physician Routine Consulting Provider: Jed Tierney Consult Reason/Comments: medical managment Do you want consulting provider notified?: Yes Primary care physician: Andria Perez Plan - Discharge Summary Discharge Rx Participant: No New Discharge Prescriptions: No Action traZODone HCL 100 mg PO HS LORazepam [Ativan] 1 mg PO QID DULoxetine HCL [Cymbalta] 90 mg PO QAM Ibuprofen 200 mg PO DAILY PRN PRN Reason: Pain Omeprazole [PriLOSEC] 20 mg PO QAM Discharge Medication List DULoxetine HCL [Cymbalta] 90 mg PO QAM 11/20/18 [History] LORazepam [Ativan] 1 mg PO QID 11/20/18 [History] traZODone HCL 100 mg PO HS 11/20/18 [History] Ibuprofen 200 mg PO DAILY PRN 05/22/19 [History] Omeprazole [PriLOSEC] 20 mg PO QAM 06/15/19 [History] Follow up Appointment(s)/Referral(s): Susan Ness MD [STAFF PHYSICIAN] - 1 Week Activity/Diet/Wound Care/Special Instructions: Do not drive today Wear bra at all times teach patient drain care, drain and record twice a day and as needed Patient may shower after 48 hours Do not use ibuprofen in the postoperative period Discharge Disposition: HOME SELF-CARE
--- NOTE | 2019-06-18 09:04 | MM ---
EXAMINATION TYPE: MG pre op needle loc RT, MG surgical specimen RT DATE OF EXAM: 06/17/2019 COMPARISON: Right breast biopsy dated 11/25/2018 CLINICAL HISTORY: Biopsy-proven right breast cancer with neoadjuvant chemotherapy. TECHNIQUE: Needle localization with wire placement and surgical excision of area of concern in the right breast. FINDINGS: The procedure of needle localization with wire placement and than surgical excision was explained to the patient. Benefits, alternatives, and risks were discussed. An informed consent was then obtained. The shortest pathway for procedure was CC from above however the biopsy marker was not definitively seen on the CC projection. The neck shortest pathway was lateral to medial approach. The overlying skin was prepped and draped in usual sterile fashion. Lidocaine buffered with bicarbonate was used as anesthetic into the skin and subcutaneous tissue up to the level of area of concern. A 9 cm needle was used. It was placed via a lateral to medial approach under mammographic guidance. Subsequent 90 degrees mammogram show the needle to be in satisfactory position relative to the targeted area. At this point, wire was placed and the needle was withdrawn. The wire was fixed to patient's skin. Images were marked for surgeon. The patient tolerated the procedure well without any immediate complication. The patient was kept in the radiology department for short stay after the procedure and then taken to surgery for surgical excision. The needle localization wire is identified in specimen mammogram. The patient was kept in hospital for short stay after the procedure and then discharged home in stable condition. IMPRESSION: Successful, uncomplicated needle localization with wire placement and surgical excision of right breast cancer status post neoadjuvant chemotherapy, full pathology results to follow. Note the original biopsy marker is not identified in specimen radiographs. Pathology Results: Malignant A. RIGHT BREAST/AXILLA, SENTINEL LYMPH NODE, BIOPSY: Two lymph nodes negative for metastatic adenocarcinoma as documented by H+E as well as appropriately controlled immunohistochemical stains for DONAVON and Cytokeratin 7. B. RIGHT BREAST LESION AT TWELVE O'CLOCK POSITION, LUMPECTOMY: Focal residual poorly differentiated (Taylor Grade 3) adenocarcinoma with some response to neoadjuvant chemotherapy measuring 6 x 6 x 5 mm. Adenocarcinoma is approximately 1 mm away from the black inked superior margin of excision. Adjacent breast parenchyma shows focal duct carcinoma in situ, intermediate grade focally involving a lobule measuring 5.5 mm from the closest green inked margin of excision. Surrounding breast parenchyma shows mineralizations, sclerosing adenosis and fibrocystic spectrum changes. See note. C. NEW MARGIN OF RIGHT BREAST, EXTENDED EXCISION: All margins negative for infiltrating carcinoma or DCIS. Recommendation Surgical consult of the right breast. (Continued surgical/medical management) DINAH
[2019-06-18] MEDS: HEPARIN SODIUM,PORCINE 5,000 UNIT/ML 1 ML VIAL SQ SCH (09:16)
[2019-06-18 10:05] VITALS: BP 101/65; PULSE 81; RESP 20; TEMP 97.7
[2019-06-18] MEDS ORDERED: LORazepam 1 MG TAB PO SCH (13:00)
--- NOTE | 2019-06-18 20:38 | P.CONS ---
History of Present Illness - Reason for Consult Consult date: 06/18/19 Medical management Requesting physician: Susan Ness - Chief Complaint Breast surgery - History of Present Illness Consultation: This is a 38-year-old patient whose chronic stable medical conditions include anxiety, depression, PTSD, chronic nicotine dependence, and also uses marijuana daily. Patient status post new adjuvant chemotherapy for invasive ductal ca rcinoma of the right breast. Patient has opted for lumpectomy and sentinel node biopsy. She is under: [place] node biopsy needle local lumpectomy and tissue transfer. Posterior she's the pain is controlled. Has a GWEN drain in place. Did tolerate a light breakfast this morning. No nausea vomiting. Pain is controlled. No fever no chills. Review of systems: GEN.: Tired EYES: None HEENT: None NECK: None RESPIRATORY: None CARDIOVASCULAR: None GASTROINTESTINAL: None GENITOURINARY: None MUSCULOSKELETAL: None LYMPHATICS: None HEMATOLOGICAL: None PSYCHIATRY: But anxious NEUROLOGICAL: None Past medical history to include: Invasive ductal carcinoma of the right breast, anxiety, depression, panic disorder, PTSD Social history: Smokes about half pack a day for close to 50 years, thus one joint of marijuana daily, this is a boyfriend, no alcohol Physical examination: VITAL SIGNS: 97.7, 81, 20, 101/65, 96% room air GENERAL: BMI 27.1, laying in bed, awake. EYES: Pupils equal. Conjunctiva normal. HEENT: External appearance of nose and ears normal, oral cavity grossly normal. NECK: JVD not raised; masses not palpable. HEART: First and second heart sounds are normal; no edema. LUNGS: Respiratory rate normal; clear to auscultation. ABDOMEN: Soft, nontender, liver spleen not palpable, no masses palpable. PSYCH: Alert and oriented x3; mood and affect normal. NEUROLOGICAL: Cranial nerves grossly intact; no facial asymmetry, power and sensation grossly intact. LYMPHATICS: No lymph nodes palpable in the axilla and neck CHEST wall: Dressing over the right chest with a GWEN drain in place INVESTIGATIONS, reviewed in the clinical context: No blood work was done Assessment: -Anxiety depression not otherwise specified -Chronic nicotine dependence patient cigarette smoker -Recreational marijuana use patient does want joint today -PTSD -Anxiety depression not otherwise specified -[place] node biopsy, needle localized lumpectomy with tissue transfer for invasive ductal carcinoma of the right breast Plan: -Patient laying in bed. Comfortable. Did tolerate her breakfast. Advised use a nicotine patch. Other home medications are to be continued. Care was discuss ed with the patient. Patient is to follow with her PCP after discharge. Thank you Balta Bowie Past Medical History Past Medical History: Cancer Additional Past Medical History / Comment(s): Recent right breast CA diagnosis. History of Any Multi-Drug Resistant Organisms: None Reported Past Surgical History: Adenoidectomy, Orthopedic Surgery, Tonsillectomy, Tubal Ligation Additional Past Surgical History / Comment(s): Bilateral ankle surgery. Past Anesthesia/Blood Transfusion Reactions: No Reported Reaction Smoking Status: Current some day smoker - Past Family History Father Family Medical History: Cancer Additional Family Medical History / Comment(s): Lung cancer. Medications and Allergies Home Medications Medication Instructions Recorded Confirmed Type DULoxetine HCL [Cymbalta] 90 mg PO QAM 11/20/18 06/15/19 History LORazepam [Ativan] 1 mg PO QID 11/20/18 06/15/19 History traZODone HCL 100 mg PO HS 11/20/18 06/17/19 History Ibuprofen 200 mg PO DAILY PRN 05/22/19 06/15/19 History Omeprazole [PriLOSEC] 20 mg PO QAM 06/15/19 06/15/19 History Allergies Allergy/AdvReac Type Severity Reaction Status Date / Time No Known Allergies Allergy Verified 06/17/19 18:33 Physical Exam Vitals: Vital Signs Temp Pulse Pulse Pulse Pulse Resp BP 06/18/19 08:36 97.7 F 81 20 06/17/19 23:15 98.1 F 84 16 06/17/19 22:15 80 16 06/17/19 21:15 83 16 06/17/19 20:45 95 18 06/17/19 20:15 97.9 F 90 18 06/17/19 20:00 100 18 06/17/19 19:45 94 18 06/17/19 19:30 102 H 18 06/17/19 19:01 113 H 18 06/17/19 18:47 103 H 18 06/17/19 18:31 108 H 18 06/17/19 18:15 102 H 16 06/17/19 18:00 99.3 F 90 18 06/17/19 12:17 89 100/69 06/17/19 11:37 98.0 F 99 16 106/69 06/17/19 11:20 97.7 F 98 16 BP Pulse Ox 06/18/19 08:36 101/65 96 06/17/19 23:15 99/67 96 06/17/19 22:15 91/58 95 06/17/19 21:15 119/67 95 06/17/19 20:45 129/65 95 06/17/19 20:15 94/65 93 L 06/17/19 20:00 114/66 93 L 06/17/19 19:45 108/71 93 L 06/17/19 19:30 107/72 94 L 06/17/19 19:01 115/65 98 06/17/19 18:47 115/65 98 06/17/19 18:31 126/69 98 06/17/19 18:15 124/67 100 06/17/19 18:00 109/64 99 06/17/19 12:17 06/17/19 11:37 06/17/19 11:20 111/77 99 Intake and Output 06/17/19 06/18/19 06/18/19 22:59 06:59 14:59 Intake Total 1760 820 Output Total 60 600 Balance 1700 220 Intake: IV 600 Oral 1160 820 Output: Drainage 10 Right Breast 10 Urine 600 Estimated Blood Loss 50 Other: # Voids 240 Weight 73.8 kg
--- NOTE | 2019-06-22 10:25 | CDI ---
The Outpatient Documentation Clarification Form Date: 06/22/19 CDS/Gusset Ripper Name; Bharti Leggett Phone: If any questions, call Sheron Tello Teacher Of Gifted Students at [phone] Patient Name: Esmer Saravia Admit Date: 06/17/19 Discharge Date: 06/18/19 ATTENTION: The [facility] Coding staff appreciate your assistance in clarifying documentation. Please respond to the clarification below the line at the bottom and electronically sign. The [facility] Coding staff with review the response and follow-up if needed. Please Note: Queries are made part of the Legal Health Record. If you have any questions, please contact the Teacher Of Gifted Students. Dear Dr. Ness In order to code to the highest specificity, please clarify the depth of the lymph node(s) biopsied. The guidelines are states as: To assist in ascertaining which lymph node excision code to report, the axillary lymph nodes are divided into Levels I through III. Levels II and III would always be deep (code 01693). Level I may be deep (code 84352) or superficial (code 77139), depending on the patient's body habitus. Superficial nodes at most sites would be easily palpable. Since Level I axillary lymph nodes may be deep or superficial, it is important that the depth (ie, deep or superficial) be documented in the medical record to ensure correct coding. Thank you for your kind consideration, The lymph node was deep. MTDD
--- NOTE | 2019-06-24 10:29 | CDI ---
Outpatient Documentation Clarification Form Date: 06/24/19 CDS/Clinical Mental Health Counselor Namer: Bharti Leggett Phone: If any questions, call Sheron Tello Animal Husbandry Worker at [phone] Patient Namer: Esmer Saravia Admit Date: 06/17/19 Discharge Date: 06/18/19 ATTENTION: The [facility] Coding Staff appreciate your assistance in clarifying documentation. Please respond to the clarification below the line at the bottom and electronically sign. The [facility] Coding Staff will review the response and follow-up if needed. Please Note: Queries are made part of the Legal Health Record. If you have any questions, pleast contact the Animal Husbandry Worker. Dear Dr. Ness Please provide clarification as to the laterality of the procedure. H&P, consult and progress note document right breast. The procedure note documents left breast. Please clarify. Thank you for your kind consideration. Right breast is correct. I also made addendum to Procedure note -right breast. Danae/Balta/JAYE 06/26 DINAH
== END 2019-06-18 12:56 | disposition home or self-care (01) ==
LOC: OR 10:30 → 6PED 18:00 → OR 06-18 12:56
PROVIDERS: ATTEND Surgery
DX: C50.911 Malignant neoplasm of unspecified site of right female breast (principal); D05.11 Intraductal carcinoma in situ of right breast; Z17.1 Estrogen receptor negative status [ER-]; D24.2 Benign neoplasm of left breast; R91.1 Solitary pulmonary nodule; F31.9 Bipolar disorder, unspecified; Z95.828 Presence of other vascular implants and grafts; Z92.21 Personal history of antineoplastic chemotherapy; Z80.0 Family history of malignant neoplasm of digestive organs; Z80.1 Family history of malignant neoplasm of trachea, bronchus and lung; Z80.8 Family history of malignant neoplasm of other organs or systems; Z98.51 Tubal ligation status; Z98.890 Other specified postprocedural states; F32.9 Major depressive disorder, single episode, unspecified; F43.10 Post-traumatic stress disorder, unspecified; F41.9 Anxiety disorder, unspecified; F39 Unspecified mood [affective] disorder; G47.00 Insomnia, unspecified; F17.210 Nicotine dependence, cigarettes, uncomplicated; Z79.899 Other long term (current) drug therapy
CPT/HCPCS: 19301; 38525; 88342; 88307; 88341; 76098; 38792; A9520; J2250; J1644 ×2; J1100; J2405; J0690; J2001; J3010; J1885; J1170 ×2; J0330; J2704

== ENCOUNTER → 2019-09-17 | Outpatient (CLI) | payer OTHER ==
[2019-09-17 10:35] VITALS: BP 103/72; PULSE 78; RESP 18; TEMP 98.1
--- NOTE | 2019-09-17 11:08 | P.PN ---
Subjective Progress Note Date: 09/17/19 Principal diagnosis: Stage IIIB right breast cancer, [id number]- Esmer is a 38-year-old white female who states that she felt a mass in her right breast on . She was seen by her primary care doctor and underwent a mammogram and ultrasound. She was noted to have an area of nodularity at 1:00 in the left breast which previously been biopsied this was felt to be slightly decreased in size when compared to prior exams. She developed an interval suspicious nodule in the 12 o'clock position of the right breast. Radiographically she was noted to have a mass in the right breast which is 14 x 19 mm on ultrasound. ( MRI 2.2 cm) She does not feel any other masses or lesions in her breasts. She denies any history of trauma or infection in the breast. She was recently discharged from the hospital after a suicidal attempt. She is bipolar. She states that the lesion in her right breast is painful to touch. Clinically the lesion was felt to be a T2 N0 M0 triple negative lesion. A CAT scan of the chest abdomen and pelvis and bone scan were performed in December 2018 as well as a PET scan. This did not show any metastatic disease. She has a nonspecific subcentimeter pulmonary nodule in the right right lung which are not metabolically active that will be monitored. The tumor was felt to be approximately 2.2 cm in greatest dimension. MRI of the breast was performed which showed a solitary biopsy-proven right breast cancer measuring approximately 2.2 cm at the 12 o'clock position. She was stable left breast fibroadenoma. It was recommended that she undergo dose dense Adriamycin plus Cytoxan followed by paclitaxel. She was started on this regimen on . She tolerated her treatment well with only grade 1 neuropathy. She has had good response to the treatment. The right breast masses become very vague as per medical oncology. The patient had genetic testing done we are awaiting results. Esmer underwent neoadjuvant chemotherapy. She finished this May 11. The patient tolerated the chemotherapy well. 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 She underwent left lumpectomy and sentinel node biopsy and 2519. Of concern was the fact that at the time of the lumpectomy the clip marking the area of concern in the breast was not clearly identified and radiographic the specimen. The patient had undergone neoadjuvant chemotherapy for an approximately 2 cm cancer which was believed to have decreased to approximately 5 mm. The final pathology report revealed a 6 x 6 x 5 mm adenocarcinoma with some response to neoadjuvant chemotherapy completely excised. Additionally there was some DCIS the closest margin was 5.5 mm. 2 sentinel nodes were removed negative for metastatic carcinoma. The patient subsequently underwent a mammogram and the clip of concern was noted to be present in the breast. She therefore underwent a stereotactic core biopsy of this area which was positive for residual carcinoma. [place] [address]. A focus of invasive ductal carcinoma 0.2 cm was noted in the peripheral part of a large previous biopsy site cavity with fat necrosis. The core biopsy was done at [facility] and a marker was placed at the site of the biopsy. Family history: Maternal cousin: Colon cancer Father: Lung cancer Maternal uncle: Brain cancer patient: breast cancer Hormonal history: Menarche: 11 3 miscarriages Periods: Regular Procedure post colon 20 years Hormones: Negative Past surgical history: 1. Bilateral ankle surgery 2. Tubal ligation 3. Tonsils and adenoids 4. Mucosal lesion removed from her mouth Past medical history: 1. Bipolar 2. Depression and anxiety 3. Mood disorder 4. Insomnia Social history: Smoking: One pack per day for 20 years Alcohol: Occasional Drugs: Marijuana - Constitutional Constitutional: Denies chills, Denies fever - EENT Eyes: denies blurred vision, denies pain Ears: deny: decreased hearing, tinnitus Ears, nose, mouth and throat: Denies headache, Denies sore throat - Breasts Breasts: bilateral: as per HPI - Cardiovascular Cardiovascular: Denies chest pain, Denies shortness of breath - Respiratory Respiratory: cough, subpulmonary nodule right lung - Gastrointestinal Gastrointestinal: Denies abdominal pain, diarrhea, Denies nausea, Denies vomiting - Genitourinary (Female) Genitourinary: Denies dysuria, Denies hematuria - Menstruation Menstruation: Reports period stopped after first round of chemotherapy - Musculoskeletal Comment: arthritis - Integumentary Integumentary: Denies pruritus, Denies rash - Neurological Comment: Carpal tunnel, weakness and hands at times - Psychiatric Psychiatric: Reports as per HPI - Hematologic/Lymphatic Comment: none - Allergic/Immunologic Allergic/Immunologic: Reports seasonal allergies Social History: smoke: 1/PPD 15 years alcohol: no drugs: Marijuana once or twice a day/recreation and calming Past Medical History Past Medical History: Skin Disorder History of Any Multi-Drug Resistant Organisms: None Reported Smoking Status: Current every day smoker Past Drug Use History: Marijuana Objective - Vital Signs Vital signs: Vital Signs Temp 98.1 F 09/17/19 10:31 Pulse 78 09/17/19 10:31 Resp 18 09/17/19 10:31 BP 103/72 09/17/19 10:31 Pulse Ox 99 09/17/19 10:31 Intake & Output 09/16/19 09/17/19 09/17/19 18:59 06:59 18:59 Weight 78.925 kg - Constitutional General appearance: Present: average body habitus - EENT Eyes: Present: EOMI ENT: Present: hearing grossly normal - Neck Neck: Present: normal ROM - Respiratory Respiratory: bilateral: CTA - Cardiovascular Rhythm: regular Heart sounds: normal: S1, S2 - Gastrointestinal General gastrointestinal: Present: normal bowel sounds, soft - Integumentary Integumentary: Present: normal turgor - Musculoskeletal Musculoskeletal: Present: gait normal - Psychiatric Psychiatric: Present: A&O x's 3, appropriate affect, intact judgment & insight - Additional findings Additional findings: Breast exam: BRA 38D inspection: Right breast ptosis grade 0, left breast ptosis grade 2 palpation: Right breast skin changes related to prior lumpectomy, scar tissue from prior lumpectomy no dominant masses or nodules of concern Right axilla: Well-healed scar no adenopathy of concern Left breast: Multiple position on exam no dominant masses or nodules of concern Left axilla: No adenopathy of concern Assessment and Plan Assessment: Impression: 1. Stage IIIB right breast cancer treated with neoadjuvant chemotherapy, lumpectomy, positive residual focus of cancer 2. Fibrocystic breast changes left breast 3. patient due for a left breast mammogram Plan: 1. Our pathology department to review pathology slides from [place] on stereotactic core biopsy 2. Needle localization excisional lumpectomy right breast, possible hyperplastic tissue transfer 3. Patient to receive radiation therapy after repeat excisional biopsy 4. Pulmonary nodule being followed by Dr. Prieto/medical oncologist 5. Bipolar 6. 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 These include bleeding, infection, possible reaction to the anesthetic. Additionally there is a possibility that the lesion could again be missed. The patient understands if margins are positive or if there is multifocal disease determined on this excis ion she might opted for mastectomy. The lesion was at the margin of the biopsy cavity. We have also discussed the risk associated with the reveles virus and the patient will be tested 48 hours prior to the procedure. She understands and wishes to proceed. Cc: Dr.Jabir Emil Florez encounter 30 minutes, > 50% of time in planning and counselling Time with Patient: Greater than 30
== END | disposition home or self-care (01) ==
LOC: WWCWWP 10:24
PROVIDERS: ATTEND Surgery
DX: Z53.9 Procedure and treatment not carried out, unspecified reason (principal)

== ENCOUNTER → 2019-09-21 | Outpatient (CLI) | payer OTHER ==
--- NOTE | 2019-09-25 07:30 | MM ---
Reason for exam: additional evaluation requested from prior study. Last mammogram was performed 10 months ago. History: Patient has history of breast cancer at age 38. Family history of breast cancer in paternal grandmother. Excisional biopsy of the right breast, August 2019. Malignant MG pre op needle loc RT of the right breast, June 17, 2019. Lumpectomy of the right breast, June 17, 2019. Malignant US biopsy breast VAD RT of the right breast, November 25, 2018. Benign MG stereo VAD BX LT of the left breast, July 05, 2016. Physical Findings: Nurse did not find any significant physical abnormalities on exam. MG Diagnostic Mammo LT w CAD CC and MLO view(s) were taken of the left breast. Prior study comparison: November 25, 2018, right breast MG diagnostic mammo RT wo CAD. The breast tissue is heterogeneously dense. This may lower the sensitivity of mammography. No significant new findings when compared with previous films. These results were verbally communicated with the patient and result sheet given to the patient on 09/21/19. ASSESSMENT: Benign, BI-RAD 2 RECOMMENDATION: Follow-up diagnostic mammogram of the left breast in 1 year. Manage on a clinical basis with regard to right breast findings and clinical findings.
== END | disposition home or self-care (01) ==
LOC: RADMAMWWP 12:23
PROVIDERS: ATTEND Surgery
DX: Z85.3 Personal history of malignant neoplasm of breast (principal)
CPT/HCPCS: 77065

== ENCOUNTER → 2019-09-28 | Outpatient (CLI) | payer OTHER | END | disposition home or self-care (01) | LOC: LABWHC1 09:08 | PROVIDERS: ATTEND Surgery | DX: U07.1 COVID-19 (principal) | CPT/HCPCS: 87635 ==

== ENCOUNTER 2019-09-29 10:35 | Day surgery (SDC) | payer OTHER ==
[2019-09-28 12:07] VITALS: BMI 27.4
[~2019-09-29 10:35] MED LIST changes: -HYDROmorphone 0.5 MG/0.5 ML SYRINGE IVP PRN; +LACTATED RINGERS 1,000 ML IV SCH; +LIDOCAINE 1% (10MG/ML) FOR IV START INTRADERMA PRN; -LIDOCAINE 1% 20 ML VIAL (10MG/ML) FOR IV START INTRADERMA PRN; -SCOPOLAMINE 1.5MG/72HR PATCH TRANSDERM ONE
[2019-09-29] MEDS ORDERED: ALPRAZolam 0.5 MG TAB PO ONE (11:05)
[2019-09-29] MEDS ORDERED: ACETAMINOPHEN TAB 500 MG TAB PO ONE (11:30)
[2019-09-29 12:07] VITALS: RESP 16
[2019-09-29] MEDS ORDERED: LIDOCAINE 1% INJ 10MG/ML (20 ML MDV) SQ ONE (12:37)
[2019-09-29] MEDS ORDERED: diphenhydrAMINE 50 MG/ML 1 ML VIAL ONE (14:10)
[2019-09-29] MEDS ORDERED: KETOROLAC 30 MG/ML 1 ML VIAL ONE (14:10)
[2019-09-29] MEDS ORDERED: PROPOFOL 10 MG/ML 20 ML VIAL IV ONE (14:10)
[2019-09-29] MEDS ORDERED: ONDANSETRON 4 MG/2 ML VIAL ONE (14:10)
[2019-09-29] MEDS ORDERED: MIDAZOLAM 2 MG/2 ML VIAL ONE (14:10)
[2019-09-29] MEDS ORDERED: SUCCINYLCHOLINE CHLORIDE 100 MG/5 ML SYR IV ONE (14:10)
[2019-09-29] MEDS ORDERED: LIDOCAINE 1% INJ 10MG/ML (20 ML MDV) ONE (14:10)
[2019-09-29] MEDS ORDERED: fentaNYL (PF) 50 MCG/ML 2 ML AMP ONE (14:10)
--- NOTE | 2019-09-29 15:18 | P.OP ---
Date of Procedure: 09/29/19 Preoperative Diagnosis: Positive margin after lumpectomy right breast cancer Postoperative Diagnosis: Same Procedure(s) Performed: Needle localization excisional biopsy of area of positive margin after lumpectomy Anesthesia: ML Surgeon: Susan Ness Estimated Blood Loss (ml): 8 IV fluids (ml): 600 Pathology: other (breast tissue) Condition: stable Disposition: same day Indications for Procedure: Positive margin after right breast lumpectomy Operative Findings: Postoperative changes in the breast tissue Description of Procedure: The patient is a 39-year-old white female who underwent neoadjuvant chemotherapy for a right breast cancer. She subsequently underwent a right breast needle localization lumpectomy and sentinel node biopsy. At the time of needle localization the initial localizing clip was not noted in the specimen. The specimen however revealed an invasive ductal carcinoma with negative margins. Repeat mammogram was performed in the area of the clip was identified. A sterile alcohol biopsy of the clip was performed and a 2 mm residual invasive ductal carcinoma was identified. Was therefore recommended that the patient have reexcision of the area. Needle localization of the area of the clip was performed. The patient was taken to the operating room. Following induction of general anesthesia the right breast was prepped and draped in a sterile fashion. An incision was made and carried down to the localizing wire. The surrounding tissue was excised including the prior lumpectomy cavity. This was excised and painted for orientation. Titanium clips were placed in the cavity. Radiograph of the specimen revealed the area of concern had been removed. The wound was examined for hemostasis. After assured that hemostasis was attained Surgicel and powder form was placed. The incision was then closed using a 3-0 Vicryl suture in the subcutaneous tissue. The skin was closed with a 4-0 Monocryl and nylon suture. The dissection was performed down onto the pectoralis major muscle. The patient tolerated procedure in stable condition. All instrument and sponge counts were correct at the end of the case.
--- NOTE | 2019-09-29 15:20 | P.DS ---
Providers Attending physician: Susan Ness Primary care physician: Andria Perez Plan - Discharge Summary Discharge Rx Participant: Yes New Discharge Prescriptions: No Action traZODone HCL 100 mg PO HS LORazepam [Ativan] 1 mg PO QID PRN PRN Reason: Anxiety Omeprazole [PriLOSEC] 20 mg PO QAM DULoxetine HCL [Cymbalta] 60 mg PO DAILY Calcium Carbonate [Tums] 500 mg PO DIRECTED PRN PRN Reason: Heartburn Discharge Medication List LORazepam [Ativan] 1 mg PO QID PRN 11/20/18 [History] traZODone HCL 100 mg PO HS 11/20/18 [History] Omeprazole [PriLOSEC] 20 mg PO QAM 06/15/19 [History] Calcium Carbonate [Tums] 500 mg PO DIRECTED PRN 09/28/19 [History] DULoxetine HCL [Cymbalta] 60 mg PO DAILY 09/28/19 [History] Follow up Appointment(s)/Referral(s): Susan Ness MD [STAFF PHYSICIAN] - 1 Week Activity/Diet/Wound Care/Special Instructions: do not drive for 24 hours after d/d or if taking narcotic pain medicine may shower after 48 hours wear bra at all times Discharge Disposition: HOME SELF-CARE
[2019-09-29 15:53] VITALS: TEMP 97.2
[2019-09-29] MEDS: HYDROmorphone 0.5 MG/0.5 ML SYRINGE IVP PRN ×2 (15:58→16:22)
[2019-09-29] MEDS ORDERED: HYDROcodone/APAP 5-325MG 1 EACH TAB PO ONE (17:15)
[2019-09-29 17:30] VITALS: BP 114/63; PULSE 86
--- NOTE | 2019-09-29 19:18 | MM ---
EXAMINATION TYPE: MG pre op needle loc RT, MG surgical specimen RT DATE OF EXAM: 09/29/2019 COMPARISON: Prior outside mammogram July 14, 2019 and older mammograms. CLINICAL HISTORY: Right-sided breast cancer roughly 2 cm in size diagnosed 2019 who had neoadjuvant chemotherapy with subsequent surgical excision June 17, 2019 but unsuccessful removal of biopsy clip. She subsequently had stereotactic guided biopsy of the clip at outside institution July 29, 2019 which revealed 2 mm residual focus invasive ductal carcinoma with new biopsy clip placed. TECHNIQUE: Needle localization with wire placement and surgical excision of area of concern in the right breast. FINDINGS: The procedure of needle localization with wire placement and than surgical excision was explained to the patient. Benefits, alternatives, and risks were discussed. An informed consent was then obtained. Preprocedure 2 view mammogram performed showing clip in the middle to posterior depth upper slight outer aspect along the anterior margin of surgical clips. First attempt were made using a lateral pathway were unsuccessful both times as needle and wire were too far posterior in position, uncertain why. The shortest pathway for procedure was then chosen. Shortest pathway was cranial approach. The overlying skin was prepped and draped in usual sterile fashion. Lidocaine was used as anesthetic into the skin and subcutaneous tissue up to the level of area of concern. A 5 cm needle was used. It was placed via a cranial approach under mammographic guidance. Subsequent 90 degrees mammogram show the needle to be in satisfactory position relative to the targeted area. At this point, wire was placed and the needle was withdrawn. The wire was fixed to patient's skin. Images were marked for surgeon. The patient tolerated the procedure well without any immediate complication. The patient was kept in the radiology department for short stay after the procedure and then taken to surgery for surgical excision. Targeted clip and wire are identified in specimen mammogram along with incidental adjacent surgical clip. The patient was kept in hospital for short stay after the procedure and then discharged home in stable condition. IMPRESSION: Successful, uncomplicated needle localization with wire placement and surgical excision of targeted clip in the right breast, full pathology results to follow. Pathology Results: Malignant RIGHT BREAST, NEEDLE LOCALIZATION EXCISION: Residual high grade invasive ductal carcinoma adjacent to previous biopsy site, margins negative for malignancy. See note. Recommendation Surgical consult of the right breast. Continued surgical management. DINAH
--- NOTE | 2019-10-02 12:29 | CDI ---
NO sentinal node biopsyh was done on 09-29-19. Date: 10.02.19 CDS/Riprap Worker Name: Marilee Walker Phone: If any questions, call Sheron Tello Director Of Retail Analytics at [phone] Patient Name: Esmer Saravia Admit Date: 09.29.19 Discharge Date: 09.29.19 ATTENTION: The [facility] Coding Staff appreciate your assistance in clarifying documentation. Please respond to the clarification below the line at the bottom and electronically sign. The [facility] Coding staff will review the response and follow-up if needed. Please note: Queries are made part of the Legal Health Record. If you have any questions, please contact the Director Of Retail Analytics. Dear Dr. Ness On your Op report you have dictated that a sentinel node biopsy was done, but it is not described in your procedure report as being done the specimen is not listed on the path report. Was the sentinel node biopsy done? Thank you for your kind consideration. MTDD
== END 2019-09-29 17:47 | disposition home or self-care (01) ==
LOC: OR 10:35
PROVIDERS: ATTEND Surgery
DX: C50.911 Malignant neoplasm of unspecified site of right female breast (principal); F31.9 Bipolar disorder, unspecified; R91.1 Solitary pulmonary nodule; D24.2 Benign neoplasm of left breast; G62.9 Polyneuropathy, unspecified; N64.1 Fat necrosis of breast; F41.9 Anxiety disorder, unspecified; F39 Unspecified mood [affective] disorder; G47.00 Insomnia, unspecified; F17.210 Nicotine dependence, cigarettes, uncomplicated; M19.90 Unspecified osteoarthritis, unspecified site; J30.2 Other seasonal allergic rhinitis; N60.12 Diffuse cystic mastopathy of left breast; K21.9 Gastro-esophageal reflux disease without esophagitis; Z79.899 Other long term (current) drug therapy; Z92.21 Personal history of antineoplastic chemotherapy; Z91.5 Personal history of self-harm; Z98.890 Other specified postprocedural states; Z98.51 Tubal ligation status; Z90.89 Acquired absence of other organs; Z87.2 Personal history of diseases of the skin and subcutaneous tissue; Z80.0 Family history of malignant neoplasm of digestive organs; Z80.1 Family history of malignant neoplasm of trachea, bronchus and lung; Z80.8 Family history of malignant neoplasm of other organs or systems; Z80.3 Family history of malignant neoplasm of breast
CPT/HCPCS: 19301; 81025; 88307; 76098; 19281; J2250; J1200; J1644; J1100; J2405; J2001; J3010; J1885; J0330; J2704; J1170

== ENCOUNTER → 2019-10-15 | Outpatient (CLI) | payer OTHER ==
[2019-10-15 08:52] VITALS: BP 132/88; PULSE 84; RESP 18; TEMP 97.9
--- NOTE | 2019-10-15 09:10 | P.PN ---
Subjective Progress Note Date: 10/15/19 Principal diagnosis: Stage IIIB right breast cancer Esmer is a 38-year-old white female who is status post right breast lumpectomy and sentinel node biopsy for a stage IIIB right breast cancer. She underwent neoadjuvant chemotherapy which was finished in April 2019. She then underwent a left lumpectomy and sentinel node biopsy and 2519. Of concern was the fact that at the time of lumpectomy the clip marking the area of concern was not clearly identified in the radiographic specimen. The patient final pathology report at that time revealed a 6 x 5 mm adenocarcinoma with some response to neoadjuvant chemotherapy completely excised. Additionally there was some DCIS the closest margin was 5.5 mm. 2 sentinel nodes were removed negative for metastatic carcinoma. The patient subsequently underwent a mammogram and the clip of concern was noted to be present in the breast. She then underwent a chemical technician to core biopsy of the area of the clip which is positive for residual carcinoma. This was done on . A focus of 0.2 cm was noted in the peripheral part of the large biopsy cavity with fat necrosis. The patient therefore was returned to the internal the operating room on needle localization and excisional biopsy of the area of after positive margin from lumpectomy. This revealed residual high-grade invasive ductal carcinoma adjacent to previous biopsy site, margins negative for malignancy. A 6 mm focus of residual high-grade invasive ductal carcinoma was identified. The tumor was 6 mm from the closest anterior and posterior inked margins. The patient post procedure is doing well. Objective - Vital Signs Vital signs: Vital Signs Temp 97.9 F 10/15/19 08:49 Pulse 84 10/15/19 08:49 Resp 18 10/15/19 08:49 BP 132/88 10/15/19 08:49 Pulse Ox 98 10/15/19 08:49 Intake & Output 10/14/19 10/15/19 10/15/19 18:59 06:59 18:59 Weight 77.564 kg - Exam BMI 28.5 - Constitutional General appearance: Present: average body habitus - EENT Eyes: Present: EOMI ENT: Present: hearing grossly normal - Neck Neck: Present: normal ROM - Respiratory Respiratory: bilateral: CTA - Cardiovascular Rhythm: regular Heart sounds: normal: S1, S2 - Musculoskeletal Musculoskeletal: Present: gait normal - Psychiatric Psychiatric: Present: A&O x's 3, appropriate affect - Additional findings Additional findings: Incision right breast clean and dry no evidence of infection Assessment and Plan Assessment: Impression/Plan 1. Stage IIIB right breast cancer status post neoadjuvant chemotherapy, status post lumpectomy sentinel node biopsy with reexcision of the lumpectomy site all margins negative at this time 2. Continue follow-up with medical oncology 3. Follow-up with radiation oncology 4. Follow up here in 3 months time CC: Dr. Andria Perez Time with Patient: Less than 30
== END | disposition home or self-care (01) ==
LOC: WWCWWP 08:32
PROVIDERS: ATTEND Surgery
DX: Z53.9 Procedure and treatment not carried out, unspecified reason (principal)

== ENCOUNTER 2020-10-14 08:09 | Day surgery (SDC) | payer OTHER ==
[2020-10-12 13:22] VITALS: BMI 30.1
[~2020-10-14 08:09] MED LIST changes: +ACETAMINOPHEN TAB 500 MG TAB PO PRN; -DEXAMETHASONE SOD PHOSPHATE 10 MG/ML 1 ML VIAL IV ONE; +DEXAMETHASONE SOD PHOSPHATE 4 MG/ML 1 ML VIAL IV ONE; -HEPARIN SODIUM,PORCINE 5,000 UNIT/ML 1 ML VIAL SQ ONE; +HEPARIN SODIUM,PORCINE/PF 5,000 UNIT/0.5 ML SYRINGE SQ PRN; +HYDROmorphone 0.5 MG/0.5 ML SYRINGE IVP PRN; -LIDOCAINE 1% (10MG/ML) FOR IV START INTRADERMA PRN; -Pre Op ABX Message 1 EACH MISC MISCELLANE ONE; +SCOPOLAMINE 1.5MG/72HR PATCH TRANSDERM ONE
[2020-10-14 08:41] VITALS: RESP 16; TEMP 97.8
--- NOTE | 2020-10-14 09:07 | P.GSHP ---
History of Present Illness H&P Date: 10/14/20 Chief Complaint: Right breast cancer 40-year-old female here today for Port-A-Cath removal. Patient underwent treatment for right-sided breast cancer. Mild discomfort at the port site. Otherwise has been working well. Past Medical History Past Medical History: Cancer, GERD/Reflux Additional Past Medical History / Comment(s): hx right breast CA diagnosis. hx migraine, hx ulcers, chemo from 01/2019-05/11/19, recent rt chest discomfort pt states "pain is from the port" History of Any Multi-Drug Resistant Organisms: None Reported Past Surgical History: Adenoidectomy, Orthopedic Surgery, Tonsillectomy, Tubal Ligation Additional Past Surgical History / Comment(s): Bilateral ankle surgery - bronstron repair, nasal surgery, D&C, rt breast lumpectomies x2 with lymph node biopsy, port a catheter rt chest Past Anesthesia/Blood Transfusion Reactions: No Reported Reaction Smoking Status: Current every day smoker - Past Family History Father Family Medical History: Cancer Additional Family Medical History / Comment(s): Lung cancer. Medications and Allergies Home Medications Medication Instructions Recorded Confirmed Type traZODone HCL 150 mg PO HS 11/20/18 10/12/20 History Omeprazole [PriLOSEC] 20 mg PO QAM 06/15/19 10/12/20 History DULoxetine HCL [Cymbalta] 60 mg PO DAILY 09/28/19 10/12/20 History Acetaminophen [Tylenol] 500 mg PO Q4-6H PRN 10/15/19 10/12/20 History busPIRone HCL 30 mg PO TID 10/12/20 10/12/20 History Allergies Allergy/AdvReac Type Severity Reaction Status Date / Time No Known Allergies Allergy Verified 10/14/20 08:28 Surgical - Exam Vital Signs Temp Pulse Resp BP Pulse Ox 97.8 F 69 16 123/70 100 10/14/20 08:38 10/14/20 08:38 10/14/20 08:38 10/14/20 08:38 10/14/20 08:38 Physical exam: General: Well-developed, well-nourished HEENT: Normocephalic, sclerae nonicteric Abdomen: Nontender, nondistended Extremities: No edema Neuro: Alert and oriented Chest: Right-sided Port-A-Cath noted Assessment and Plan (1) Breast cancer, right Narrative/Plan: Will proceed with Port-A-Cath removal Current Visit: No Status: Acute Code(s): C50.911 - MALIGNANT NEOPLASM OF UNSP SITE OF RIGHT FEMALE BREAST SNOMED Code(s): 849281949
[2020-10-14] MEDS ORDERED: PROPOFOL 10 MG/ML 20 ML VIAL IV ONE (09:19)
[2020-10-14] MEDS ORDERED: MIDAZOLAM 2 MG/2 ML VIAL ONE (09:19)
[2020-10-14] MEDS ORDERED: fentaNYL (PF) 50 MCG/ML 2 ML AMP ONE (09:19)
[2020-10-14] MEDS ORDERED: LIDOCAINE 1% INJ 10MG/ML (20 ML MDV) SQ ONE ×2 (09:38)
--- NOTE | 2020-10-14 09:59 | P.OP ---
Date of Procedure: 10/14/20 Procedure(s) Performed: PREOPERATIVE DIAGNOSIS: Breast cancer POSTOPERATIVE DIAGNOSIS: Same PROCEDURE: Port-A-Cath removal SURGEON: Neville EBL: Minimal ANESTHESIA: Sedation COMPLICATIONS: None OPERATIVE PROCEDURE: Patient was placed in the supine position. The patient was sedated per anesthesia that time. The chest was prepped and draped in the usual sterile fashion. The skin was localized with Marcaine solution. The previous incision was re-excised using a scalpel. The port was easily excised using accommodation of blunt dissection sharp dissection and electrocautery. The subcutaneous tissues were reapproximated using 3-0 Vicryl sutures. The skin was reapproximated using 4-0 Monocryl sutures. Skin glue was then applied. DISPOSITION: Stable to recovery room
[2020-10-14 10:15] VITALS: BP 96/64; PULSE 67
[2020-10-14] MEDS ORDERED: NALOXONE 0.4 MG/ML 1 ML VIAL IV PRN (10:58)
== END 2020-10-14 10:46 | disposition home or self-care (01) ==
LOC: OR 08:09
PROVIDERS: ATTEND Surgery
DX: Z45.2 Encounter for adjustment and management of vascular access device (principal); Z85.3 Personal history of malignant neoplasm of breast; G43.909 Migraine, unspecified, not intractable, without status migrainosus; F17.210 Nicotine dependence, cigarettes, uncomplicated; J45.909 Unspecified asthma, uncomplicated; F32.9 Major depressive disorder, single episode, unspecified; F41.9 Anxiety disorder, unspecified; Z92.21 Personal history of antineoplastic chemotherapy; Z79.899 Other long term (current) drug therapy
CPT/HCPCS: 81025; 36590; J2250; J1100; J0690; J2405; J2001; J3010; J2704; J1644